=== PATIENT | female | born 1990 | race African-American/Black ===

== ENCOUNTER 2020-01-03 13:24 | Outpatient (CLI) | payer OTHER | END 2020-01-03 21:30 | disposition home or self-care (01) | LOC: LAB 13:24 | DX: Z20.828 Contact with and (suspected) exposure to other viral communicable diseases (principal) | CPT/HCPCS: 87635; G2023; U0003 ==

== ENCOUNTER 2023-02-18 14:46 | Outpatient (CLI) | payer OTHER | END 2023-02-18 20:24 | disposition home or self-care (01) | LOC: US 14:46 | PROVIDERS: ATTEND Nurse Practitioner Family | DX: R10.11 Right upper quadrant pain (principal) ==